=== PATIENT | female | born 1990 | race Caucasian/White ===

== ENCOUNTER 2016-06-09 21:30 | Emergency (ER) | payer SELFPAY ==
[2016-06-09 23:11] LABS: BASOPHILS 0.3 % (0.0-2.0); EOSINOPHILS 0.5 % (0-7); HEMATOCRIT 43.1 % (36.0-48.0); IMMATURE GRANULOCYTES 0.2 % (0-5); LYMPHOCYTES 29.4 % (15-50); MCH 32.4 pg (26.0-34.0); MCHC 34.8 g/dL (31.0-37.0); MCV 93.1 fL (80.0-100.0); MONOCYTES 5.1 % (2-11); NEUTROPHILS 64.5 % (40-80); PLATELET COUNT 232 10x3/uL (130-400); RBC 4.63 10x6/uL (4.00-5.40); WBC 10.7 10x3/uL (4.8-10.8)
[2016-06-09 23:38] LABS: ALBUMIN 3.8 g/dL (3.4-5.0); ALKALINE PHOSPHATASE 109 U/L (46-116); ALT (SGPT) 18 U/L (10-68); BILIRUBIN - TOTAL 0.32 mg/dL (0.2-1.3); CALC OSMOLALITY 272 mosm/kg (275-300); CALCIUM 8.6 mg/dL (8.5-10.1); CARBON DIOXIDE 30.7 mmol/L (21.0-32.0); CHLORIDE - SERUM 102 mmol/L (98-107); CREATININE - SERUM 0.7 mg/dL (0.6-1.3); GLUCOSE 100 mg/dL (74-106); POTASSIUM - SERUM 4.4 mmol/L (3.5-5.1); PROTEIN - SERUM 7.2 g/dL (6.4-8.2); SODIUM 138 mmol/L (136-145); UREA NITROGEN 5 mg/dL (7-18); eGFR NON AFRICAN AMERICAN > 90 mL/min (90-120)
[2016-06-09 23:40] LABS: PHENYTOIN (DILANTIN) 29.2 ug/mL (10.0-20.0)
[2016-06-09 23:41] LABS: APPEARANCE CLEAR (CLEAR); BILIRUBIN NEGATIVE (NEGATIVE); COLOR YELLOW (YELLOW); GLUCOSE NEGATIVE (NEGATIVE); KETONE SMALL mg/dL (NEGATIVE); LEUKOCYTE ESTERASE NEGATIVE (NEGATIVE); NITRITE NEGATIVE (NEGATIVE); PH 6.5 (5.0-6.0); PROTEIN NEGATIVE (NEGATIVE); SPECIFIC GRAVITY 1.005 (1.005-1.020); UROBILINOGEN NORMAL (NORMAL)
[2016-06-09 23:42] LABS: HCG URINE NEGATIVE (NEGATIVE)
== END 2016-06-10 00:45 | disposition home or self-care (01) ==
LOC: D.ER 21:30
PROVIDERS: Family Medicine
DX: R55 Syncope and collapse (principal); F32.9 Major depressive disorder, single episode, unspecified; K21.9 Gastro-esophageal reflux disease without esophagitis

== ENCOUNTER → 2016-07-08 09:14 | Outpatient (CLI) | payer MEDICAID | END | disposition home or self-care (01) | LOC: D.CN 06-25 10:00 → D.MRI 06-25 14:30 → D.CN 06-26 10:00 → D.MRI 09:14 → D.CN 10:00 → D.MRI 11:00 | DX: R55 Syncope and collapse (principal); R56.9 Unspecified convulsions ==

== ENCOUNTER 2016-11-28 21:23 | Emergency (ER) | payer MEDICAID ==
[2016-11-28 22:12] LABS: BASOPHILS 0.2 % (0-2); EOSINOPHILS 0.6 % (0-7); HEMATOCRIT 43.5 % (36.0-48.0); HEMOGLOBIN 15.1 g/dL (12-16); IMMATURE GRANULOCYTES 0.2 % (0-5); LYMPHOCYTES 20.4 % (15-50); MCH 33.6 pg (26.0-34.0); MCHC 34.7 g/dL (31.0-37.0); MCV 96.7 fL (80.0-100.0); MEAN PLATELET VOLUME 10.4 fL (7.4-10.4); MONOCYTES 4.3 % (2-11); NEUTROPHILS 74.3 % (40-80); PLATELET COUNT 254 10x3/uL (130-400); RDW 12.4 % (11.5-14.5); WBC 12.4 10x3/uL (4.8-10.8)
[2016-11-28 22:42] LABS: ALKALINE PHOSPHATASE 103 U/L (46-116); ALT (SGPT) 32 U/L (10-68); CALC OSMOLALITY 281 mosm/kg (275-300); CALCIUM 8.9 mg/dL (8.5-10.1); CARBON DIOXIDE 27.8 mmol/L (21.0-32.0); CHLORIDE - SERUM 103 mmol/L (98-107); CREATININE - SERUM 0.9 mg/dL (0.6-1.3); GLUCOSE 113 mg/dL (74-106); PHENYTOIN (DILANTIN) 1.3 ug/mL (10.0-20.0); POTASSIUM - SERUM 3.9 mmol/L (3.5-5.1); PROTEIN - SERUM 7.5 g/dL (6.4-8.2); SODIUM 141 mmol/L (136-145); UREA NITROGEN 12 mg/dL (7-18); eGFR NON AFRICAN AMERICAN 79 mL/min (90-120)
== END 2016-11-29 00:17 | disposition home or self-care (01) ==
LOC: D.ER 21:23
PROVIDERS: Emergency Medicine
DX: R56.9 Unspecified convulsions (principal); T42.0X6A Underdosing of hydantoin derivatives, initial encounter; T42.3X6A Underdosing of barbiturates, initial encounter; Z91.138 Patient's unintentional underdosing of medication regimen for other reason; Y92.019 Unspecified place in single-family (private) house as the place of occurrence of the external cause; K21.9 Gastro-esophageal reflux disease without esophagitis

== ENCOUNTER → 2017-09-11 11:19 | Outpatient (CLI) | payer MEDICAID ==
[~2017-09-11 11:19] MED LIST: DILANTIN100 MG PO; FOLIC ACID1 MG PO; HYDROCODON-ACE1 EAC7 PO; IBUPROFEN600 MG PO; PHENOBARBITAL97.2 MG PO; ZOLOFT100 MG PO
[2017-10-26 18:05] VITALS: BMI 39.0
== END | disposition home or self-care (01) ==
LOC: D.LDO 11:19 → D.LABREF 11:19
DX: O99.350 Diseases of the nervous system complicating pregnancy, unspecified trimester (principal); Z3A.00 Weeks of gestation of pregnancy not specified

== ENCOUNTER → 2017-09-18 10:33 | Outpatient (CLI) | payer MEDICAID ==
[2017-10-26 18:05] VITALS: BMI 39.0
== END | disposition home or self-care (01) ==
LOC: D.LDO 10:33
DX: O26.893 Other specified pregnancy related conditions, third trimester (principal); Z3A.33 33 weeks gestation of pregnancy

== ENCOUNTER → 2017-10-02 11:25 | Outpatient (CLI) | payer MEDICAID ==
[2017-10-26 18:05] VITALS: BMI 39.0
== END | disposition home or self-care (01) ==
LOC: D.LDO 11:25
DX: O26.893 Other specified pregnancy related conditions, third trimester (principal); Z3A.35 35 weeks gestation of pregnancy

== ENCOUNTER → 2017-10-09 11:26 | Outpatient (CLI) | payer MEDICAID ==
[2017-10-26 18:05] VITALS: BMI 39.0
== END | disposition home or self-care (01) ==
LOC: D.LDO 11:26
DX: O99.353 Diseases of the nervous system complicating pregnancy, third trimester (principal); Z3A.36 36 weeks gestation of pregnancy

== ENCOUNTER → 2017-10-18 14:45 | Outpatient (CLI) | payer MEDICAID ==
[2017-10-26 18:05] VITALS: BMI 39.0
== END | disposition home or self-care (01) ==
LOC: D.LDO 14:45
DX: O99.353 Diseases of the nervous system complicating pregnancy, third trimester (principal); Z3A.37 37 weeks gestation of pregnancy

== ENCOUNTER → 2017-10-23 14:42 | Outpatient (CLI) | payer MEDICAID ==
[2017-10-26 18:05] VITALS: BMI 39.0
== END | disposition home or self-care (01) ==
LOC: D.LDO 14:42
DX: O99.353 Diseases of the nervous system complicating pregnancy, third trimester (principal); Z3A.38 38 weeks gestation of pregnancy; O36.8130 Decreased fetal movements, third trimester, not applicable or unspecified; Z3A.28 28 weeks gestation of pregnancy

== ENCOUNTER 2017-10-26 05:27 | Inpatient (IN) | payer MEDICAID ==
[~2017-10-26] VITALS: Ht 162.6 cm; Wt 103.0 kg
[~2017-10-26 05:27] MED LIST changes: -HYDROCODON-ACE1 EAC7 PO; -IBUPROFEN600 MG PO
[2017-10-26 06:03] LABS: HEMATOCRIT 34.9 % (36.0-48.0); HEMOGLOBIN 12.4 g/dL (12-16); MCH 32.6 pg (26.0-34.0); MCHC 35.5 g/dL (31.0-37.0); MCV 91.8 fL (80.0-100.0); RBC 3.8 10x6/uL (4.00-5.40); RDW 13.1 % (11.5-14.5)
[2017-10-26 07:18] LABS: APPEARANCE CLEAR (CLEAR); BILIRUBIN NEGATIVE (NEGATIVE); COLOR YELLOW (YELLOW); GLUCOSE NEGATIVE (NEGATIVE); KETONE NEGATIVE (NEGATIVE); NITRITE NEGATIVE (NEGATIVE); PROTEIN NEGATIVE (NEGATIVE); UROBILINOGEN NORMAL (NORMAL)
[2017-10-26 18:05] VITALS: Ht 162.6 cm; Wt 103.0 kg
[2017-10-26 20:15] VITALS: BP 102/52
[2017-10-27 06:03] LABS: BASOPHILS 0.1 % (0-2); EOSINOPHILS 0.6 % (0-7); HEMATOCRIT 32.6 % (36.0-48.0); HEMOGLOBIN 11.5 g/dL (12-16); IMMATURE GRANULOCYTES 0.6 % (0-5); LYMPHOCYTES 17.2 % (15-50); MCH 32.7 pg (26.0-34.0); MCHC 35.3 g/dL (31.0-37.0); MCV 92.6 fL (80.0-100.0); MONOCYTES 5.6 % (2-11); NEUTROPHILS 75.9 % (40-80); PLATELET COUNT 195 10x3/uL (130-400); RBC 3.52 10x6/uL (4.00-5.40); RDW 13.3 % (11.5-14.5); WBC 15.7 10x3/uL (4.8-10.8)
[2017-10-27 07:36] LABS: RAPID PLASMA REAGIN Non Reactive (Non Reactive)
[2017-10-27 07:54] VITALS: BP 103/70
[2017-10-27 14:28] VITALS: BP 109/69
[2017-10-27] MEDS ORDERED: HYDROCODON-ACE1 EAC7 PO (15:33)
[2017-10-27] MEDS ORDERED: IBUPROFEN600 MG PO (15:34)
== END 2017-10-27 16:35 | disposition home or self-care (01) | DRG 775 ==
LOC: D.LD 05:27 → D.WS 20:15
PROVIDERS: Obstetrics & Gynecology
PROC: 10E0XZZ Delivery of Products of Conception, External Approach (ICD-10-PCS; principal; 2017-10-26)
PROC: 10907ZC Drainage of Amniotic Fluid, Therapeutic from Products of Conception, Via Natural or Artificial Opening (ICD-10-PCS; 2017-10-26)
DX: O99.354 Diseases of the nervous system complicating childbirth (principal); O66.0 Obstructed labor due to shoulder dystocia; O99.214 Obesity complicating childbirth; B00.9 Herpesviral infection, unspecified; O99.334 Smoking (tobacco) complicating childbirth; Z37.0 Single live birth; Z3A.38 38 weeks gestation of pregnancy

== ENCOUNTER 2019-07-27 11:55 | Outpatient (CLI) | payer MEDICAID ==
[2017-10-26 18:05] VITALS: BMI 39.0
[~2019-07-27 11:55] MED LIST changes: +HYDROCODON-ACE1 EAC7 PO; +IBUPROFEN600 MG PO
== END 2019-07-27 13:00 | disposition home or self-care (01) ==
LOC: D.LDO 11:55
PROVIDERS: ATTEND Obstetrics & Gynecology
DX: O36.8190 Decreased fetal movements, unspecified trimester, not applicable or unspecified (principal); Z3A.00 Weeks of gestation of pregnancy not specified

== ENCOUNTER 2019-08-10 06:33 | Inpatient (IN) | payer MEDICAID ==
[~2019-08-10] VITALS: Ht 162.6 cm; Wt 98.4 kg
[2019-08-10 06:57] LABS: HEMATOCRIT 37.4 % (36.0-48.0); MCH 32.1 pg (26.0-34.0); MCHC 34.8 g/dL (31.0-37.0); MCV 92.3 fL (80.0-100.0); MEAN PLATELET VOLUME 10.3 fL (7.4-10.4); RBC 4.05 10x6/uL (4.00-5.40); RDW 12.5 % (11.5-14.5); WBC 13.9 10x3/uL (4.8-10.8)
[2019-08-10 07:03] LABS: UDS - AMPHET NEGATIVE QUAL (NEGATIVE); UDS - BARB NEGATIVE QUAL (NEGATIVE); UDS - BENZO NEGATIVE QUAL (NEGATIVE); UDS - COCAINE NEGATIVE QUAL (NEGATIVE); UDS - OPIATE NEGATIVE QUAL (NEGATIVE); UDS - PCP NEGATIVE QUAL (NEGATIVE); UDS - THC NEGATIVE QUAL (NEGATIVE)
--- NOTE | 2019-08-10 08:55 | MORECARE ---
CASE MANAGEMENT DISCHARGE SUMMARY PATIENT: JEFFERY ELIZABETH S UNIT: [id number] ADM DATE: 08/10/19 AGE: 29 : 86 SEX: F ROOM/BED: D.[facility] AUTHOR: JACLYN AGUIRRE PHYSICIAN: REFERRING PHYSICIAN: GERI MAXWELL MD DATE OF SERVICE: 08/10/19 Discharge Plan Patient Name: JEFFERY ELIZABETH [facility] [facility] 1990 Planned Disposition: Home Anticipated Discharge Date: Discharge Date: Expected LOS: Initial Reviewer: [email or web address] Initial Review Date: 08/10/2019 Generated: 08/10/19 9:54 am Patient Name: JEFFERY ELIZABETH Page [id number] at 0855 All edits/amendments must be made on the electronic document DICTATION DATE: 08/10/19 0854 GOVERNMENT DOCUMENTS LIBRARIAN: JD 08/10/19 0854 RPT#: [id number] DC DATE: STATUS: ADM IN [facility] [address] [place] [address] END OF REPORT
--- NOTE | 2019-08-10 15:50 | NUR ---
RECEIVED REPORT FROM TODD ELLISON RN
[2019-08-10 16:00] VITALS: BP 98/59
--- NOTE | 2019-08-10 16:00 | NUR ---
SHIFT ASSESSMENT PER FLOW SHEET, VS OBTAINED, SALINE LOCK IN RIGHT FA INTACT WITH NO REDNESS OR EDEMA, FF, ML, U/1, LITE BLEEDING WITH 1 PEA SIZE CLOT NOTED ON TOWEL, PT INST ON AND VERBALIZES UNDERSTANDING OF ALLA CARE AND WALKING TO BR, PT UP TO SIDE OF BED, DENIES DIZZYNESS OR LIGHTHEADEDNESS, PT AMB TO BR, GAIT STEADY WITH ASSISTANCE, PT TO COMMODE, VOIDED 300MLS OF LIGHTLY BLOOD TINGED URINE BY SELF WITH NO DIFFICULTY, PT DID OWN ALLA CARE, ASSISTED PT WITH ALLA PANTIES, PAD, AND CLEAN GOWN, PT AMB, GAIT STEADY, TO ROOM 1257, PT ORIENTED TO ROOM, BED IN LOW POSITION, SIDE RAILS X 2, CALL LIGHT IN REACH, FOB AND THIS RN MOVED ALL BELONGINGS TO ROOM, TOWELS PROVIDED TO PT, AND BEDDING PROVIDED TO FOB, PT DENIES FURTHER NEEDS OR PAIN AT THIS TIME
--- NOTE | 2019-08-10 17:28 | NUR ---
PT SITTING UP IN BED TALKING ON CELL PHONE, DENIES NEEDS OR PAIN, INFANT IN OPEN CRIB CART AND FOB AT BEDSIDE
--- NOTE | 2019-08-10 19:00 | NUR ---
REPORT RECEIVED FROM NAIDA SHAW.
[2019-08-10 19:30] VITALS: BP 99/50
--- NOTE | 2019-08-10 19:30 | NUR ---
PATIENT SITTING UP IN BED. AT BEDSIDE. PATIENT DENIES PAIN AT THIS TIME. RESPIRATIONS AT EASE. LUNG SOUNDS CLEAR IN ALL [place]. HEART REGULAR RATE AND RHYTHM. ABDOMEN SOFT. NON DISTENDED. BOWEL SOUNDS PRESENTS IN ALL QUADRANTS. FUNDUS FIRM, 2 BELOW UMBILICUS. LOCHIA RUBRA, SCANT AMOUNT NOTED ON ALLA PAD. FUNDUS MASSAGED. NO EDEMA NOTED TO EXTREMITIES. SALINE LOCK TO R FA. NO REDNESS OR EDEMA NOTED. PATIENT DENIES ANY NEEDS OR CONCERNS AT THIS TIME. BED IN LOWEST POSITION, SIDE RAILS UP X 2, C/L AND WATER WITHIN REACH.
[2019-08-10 19:33] VITALS: BP 112/58; Ht 162.6 cm; Wt 98.4 kg
--- NOTE | 2019-08-10 21:30 | NUR ---
PATIENT SITTING UP IN BED WITH AT BEDSIDE. DENIES ANY PAIN AT THIS TIME. BED IN LOWEST POSITION, SIDE RAILS UP X 2, C/L AND WATER AT BEDSIDE. DENIES ANY NEEDS OR CONCERNS AT THIS TIME.
--- NOTE | 2019-08-10 23:30 | NUR ---
PATIENT LYING IN BED WITH EYES CLOSED. EASILY AROUSED. DENIES PAIN OR NEEDS AT THIS TIME. BED IN LOWEST POSITION. SIDE RAILS UP X 2, WATER AND CALL LIGHT WITHIN REACH.
--- NOTE | 2019-08-11 01:30 | NUR ---
PATIENT LYING QUIETLY IN BED WITH EYES CLOSED. RESPIRATIONS AT EASE. NO SIGNS OF DISTRESS NOTED. BED IN LOWEST POSITION, SIDE RAILS UP X 2, C/L AND WATER WITHIN REACH.
--- NOTE | 2019-08-11 03:30 | NUR ---
PATIENT LYING IN BED WITH EYES CLOSED. RESPIRATIONS AT EASE. NO SIGNS OF DISTRESS NOTED. BED IN LOWEST POSITION, SIDE RAILS UP X 2, C/L AND WATER WITHIN REACH.
--- NOTE | 2019-08-11 05:30 | NUR ---
PATIENT CALLED THIS RN TO ROOM. STATES INFANT NOT BREATHING. UPON ARRIVAL TO ROOM PINK. INFANT GAGGING ON CLEAR MUSUS LIKE FLUID WITH FORMULA MIXED IN. MOTHER HOLDING INFANT UPRIGHT PATTING HIS BACK. BULB SYRINGED MOUTH AND NOSE. TO NURSERY FOR OBSERVATION. REASSURED MOTHER.
[2019-08-11 06:07] LABS: HEMATOCRIT 34.1 % (36.0-48.0); HEMOGLOBIN 11.8 g/dL (12-16); MCH 32.2 pg (26.0-34.0); MCHC 34.6 g/dL (31.0-37.0); MCV 92.9 fL (80.0-100.0); MEAN PLATELET VOLUME 10.2 fL (7.4-10.4); RBC 3.67 10x6/uL (4.00-5.40); RDW 12.5 % (11.5-14.5)
[2019-08-11 06:09] LABS: RAPID PLASMA REAGIN Non Reactive (Non Reactive)
[2019-08-11 08:44] VITALS: BP 97/54
--- NOTE | 2019-08-11 08:44 | NUR ---
SHIFT ASSESSMENT COMPLETED PER FLOWSHEET. VSS. FUNDUS FIRM, MIDLINE AND U2 WITH SCANT RUBRA LOCHIA, NO CLOTS NOTED. REPORTS THAT SHE IS VOIDING AND PASSING FLATUS WITHOUT DIFFICULTY. PT VERBALIZES PERICARE TO RN. MINIMAL BILATERAL LABIAL EDEMA NOTED. DENIES PAIN. POC DISCUSSED WITH PT AND SIGNIFICANT OTHER. ACTIVITY LIMITATIONS DISCUSSED WITH PT AND SPOUSE, BOTH VERBALIZE UNDERSTANDING AND DENY QUESTIONS. INFANT AT BEDSIDE RESTING QUIETLY IN OPEN CRIB. BED IN LOW POSITION WITH SRUP X2. CALL LIGHT AND PHONE WITHIN REACH.
--- NOTE | 2019-08-11 11:22 | NUR ---
DR. MCGUIRE AT BEDSIDE DISCUSSING INFANT'S POC WITH PT AND FOB. PT DENIES NEEDS. WILL CONTINUE TO MONITOR.
--- NOTE | 2019-08-11 12:51 | NUR ---
RN TO BEDSIDE, SITTING ON EDGE OF BED, BONDING WITH . DENIES PAIN AND NEEDS. BED IN LOW POSITION WITH SRUP X2. CALL LIGHT AND PHONE WITHIN REACH. WILL CONTINUE TO MONITOR. SPOUSE AT BEDSIDE, SUPPORTIVE AND ATTENTIVE TO PT AND NEEDS.
--- NOTE | 2019-08-11 13:46 | NUR ---
ROUNDS MADE. PT RESTING QUIETLY WITH EYES CLOSED. RESP REGULAR AND UNLABORED, NO S/S OF DISTRESS NOTED. BED IN LOW POSITION WITH SRUP X2. CALL LIGHT AND PHONE WITHIN REACH.
--- NOTE | 2019-08-11 16:46 | NUR ---
SITTING IN HIGH FOWLERS POSITION EATING EVENING MEAL. REQUESTS TO SHOWER FOLLOWING FINISHING MEAL. INSTRUCTED TO NOTIFY RN FOR LINEN CHANGE AND V/S CHECK PRIOR TO SHOWERING. STATES THAT SIGNIFICANT OTHER WILL ASSIST TO SHOWER. INFANT RESTING QUIETLY IN OPEN CRIB AT BEDSIDE. WILL CONTINUE TO MONITOR.
[2019-08-11 19:10] VITALS: BP 99/56
--- NOTE | 2019-08-11 19:10 | NUR ---
ASSESSMENT PER FLOW SHEET, VS OBTAINED, FF, ML, U/2, PT REPORTS LIGHT BLEEDING WITH NO CLOTS, PT REPORTS FLATUS, NO BM, AND VOIDING WITH NO DIFFICULTY, PT REPORTS THAT SHE IS GOING TO TAKE A SHOWER, AND I INFORMED PT THAT I WILL COME BACK TO CHANGE HER BEDDING, PT VERBALIZES UNDERSTANDING, DENIES NEEDS OR PAIN AT THIS TIME, ISRAEL HARRIS, RN IN ROOM DOING ASSESSMENT ON INFANT AT THIS TIME, FOB AT BEDSIDE
--- NOTE | 2019-08-11 19:45 | NUR ---
PT OUT OF SHOWER, COMPLETE BEDDING CHANGE DONE, TRASH REMOVED, PT DENIES NEEDS OR PAIN AT THIS TIME, IN OPEN CRIB CART AND FOB SITTING ON COUCH WITH PT
--- NOTE | 2019-08-11 21:13 | NUR ---
PT HOLDING INFANT, DENIES NEEDS OR PAIN AT THIS TIME, FOB ASLEEP ON COUCH
--- NOTE | 2019-08-11 22:23 | NUR ---
PT HOLDING INFANT, REQUESTED AND PROVIDED FORMULA, NIPPLES, AND BABY WIPES, PT DENIES FURTHER NEEDS, FOB ASLEEP ON COUCH
--- NOTE | 2019-08-12 00:02 | NUR ---
PT HOLDING , INFORMED PT THAT I NEED TO TAKE TO NSY, PT VERBALIZES UNDERSTANDING, INFANT TO NSY VIA OPEN CRIB CART PER THIS RN
--- NOTE | 2019-08-12 00:32 | NUR ---
INFANT TO ROOM VIA OPEN CRIB CART, BANDS CHECKED, TO PT'S ARMS, PT DENIES NEEDS OR PAIN AT THIS TIME, FOB ASLEEP ON COUCH
--- NOTE | 2019-08-12 02:45 | NUR ---
PT RESTING IN BED HOLDING , DENIES NEEDS OR PAIN AT THIS TIME, FOB ASLEEP ON COUCH
--- NOTE | 2019-08-12 04:39 | NUR ---
PT AWAKE, BOTTLE FEEDING , PT REPORTS IS FEEDING WELL, PT DENIES NEEDS OR PAIN AT THIS TIME, FOB ASLEEP ON COUCH
--- NOTE | 2019-08-12 06:24 | NUR ---
UPON ENTERING ROOM, PT RESTING HOLDING INFANT, PT INST NOT TO BE SLEEPING WITH INFANT IN BED WITH HER, PT STATES "I'M NOT, I'M AWAKE", PT DENIES NEEDS OR PAIN, FOB ASLEEP ON COUCH
--- NOTE | 2019-08-12 07:14 | NUR ---
PT LAYING ON R SIDE, RESTING WITH EYES CLOSED. RESP REGULAR AND UNLABORED, NO S/S OF DISTRESS NOTED. PT NOT DISTURBED TO ALLOW FOR REST. SIGNIFICANT OTHER RESTING ON COUCH IN ROOM. BED IN LOW POSITION WITH SRUP X2. CALL LIGHT AND PHONE WITHIN REACH. WILL CONTINUE TO MONITOR.
--- NOTE | 2019-08-12 07:15 | NUR ---
SHIFT REPORT TO DAY SHIFT
--- NOTE | 2019-08-12 08:55 | NUR ---
SHIFT ASSESSMENT COMPLETED PER FLOWSHEET. VSS. FUNDUS FIRM, MIDLINE AND U2 WITH SCANT RUBRA LOCHIA, NO CLOTS NOTED. C/O ABD CRAMPING 2/10, MOTRIN GIVEN PER ORDER AND PT REQUEST. NO PIV ACCESS NOTED. 1+ BLE EDEMA. REPORTS THAT SHE IS VOIDING AND PASSING FLATUS WITHOUT DIFFICULTY. VERBALIZES PERICARE TO RN. DENIES QUESTIONS. EDUCATED ON S/S OF BLEEDING TO REPORT TO RN AND TO MD FOLLOWING D/C HOME. EDUCATED ON S/S OF INFECTIONS, VERBALIZES UNDERSTANDING. POC DISCUSSED WITH PT AND SIGNIFICANT OTHER. DENIES NEEDS AND QUESTIONS. POC DISCUSSED WITH BOTH, VERBALIZES UNDERSTANDING AND AGREEMENT. BED IN LOW POSITION WITH SRUP X2. CALL LIGHT AND PHONE WITHIN REACH. WILL CONTINUE TO MONITOR.
--- NOTE | 2019-08-12 09:36 | NUR ---
PAIN REASSESSMENT COMPLETED. DENIES PAIN. INFANT IN FOB'S ARMS. BED IN LOW POSITION WITH SRUP X2. CALL LIGHT AND PHONE WITHIN REACH. WILL CONTINUE TO MONITOR.
--- NOTE | 2019-08-12 10:45 | NUR ---
BONDING WITH INFANT IN ARMS. DENIES PAIN AND NEEDS. ICE WATER PROVIDED. SIGNIFICANT OTHER AT BEDSIDE, SUPPORTIVE AND ATTENTIVE TO PT AND NEEDS. PT QUESTIONS RN REGARDING POSSIBLE D/C HOME TODAY, INFORMED PT THAT RN WOULD SPEAK TO DR. MAXWELL REGARDING POSSIBLE D/C, VERBALIZES UNDERSTANDING.
--- NOTE | 2019-08-12 11:11 | NUR ---
DR. MAXWELL ON UNIT. V/O REC'D TO D/C PT HOME.
--- NOTE | 2019-08-12 11:59 | MORECARE ---
CASE MANAGEMENT DISCHARGE SUMMARY PATIENT: JEFFERY ELIZABETH S UNIT: [id number] ADM DATE: 08/10/19 AGE: 29 : 86 SEX: F ROOM/BED: D.1257 AUTHOR: JACLYN AGUIRRE PHYSICIAN: REFERRING PHYSICIAN: GERI MAXWELL MD DATE OF SERVICE: 08/12/19 Discharge Plan Patient Name: JEFFERY ELIZABETH [facility] [facility] 1990 Planned Disposition: Home Anticipated Discharge Date: 08/12/19 Discharge Date: Expected LOS: 2 Initial Reviewer: [email or web address] Initial Review Date: 08/10/2019 Generated: 08/12/19 12:58 pm Last DP export: 08/10/19 7:55 a Patient Name: JEFFERY ELIZABETH Page [id number] at 1159 All edits/amendments must be made on the electronic document DICTATION DATE: 08/12/19 1159 INTERACTIVE ACCOUNT MANAGER: JD 08/12/19 1159 RPT#: [id number] DC DATE: STATUS: ADM IN [facility] [address] [place] [address] END OF REPORT
--- NOTE | 2019-08-12 12:27 | NUR ---
DISCHARGE TEACHING PROVIDED TO PT PER [facility] PP INSTRUCTION HANDOUT. PT AND SIGNIFICANT OTHER DENY QUESTIONS AND VERBALIZE UNDERSTANDING OF INSTRUCTIONS. PT PROVIDED WITH COPY OF D/C INSTRUCTIONS AND VERBALIZES IMPORTANCE OF CALLING THURSDAY TO SCHEDULE PP F/U APPT WITH DR. MAXWELL NEEDED. PT PROVIDED WITH HANDWRITTEN PRESCRIPTION, [employer] HANDOUT, [employer] HANDOUT, AND [facility] PP INSTRUCTION HANDOUT. MED RECORDS CONTACTED TO COME TO ROOM FOR ACKNOWLEDGEMENT OF PATERNITY. DENIES NEEDS AND PAIN. WILL CONTINUE TO MONITOR.
--- NOTE | 2019-08-12 13:30 | NUR ---
PT AMBULATORY TO DESK IN REGARDING QUESTIONS TO WHEN WILL BE D/C'ING. SPOKE WITH DR. PELLETIER WHO REPORTS THAT SHE WILL BE REVIEWING AND CHART AND WILL COME MEET WITH PT AND FOB WHEN DONE. PT AND SIGNIFICANT OTHER INFORMED AND VERBALIZE UNDERSTANDING.
--- NOTE | 2019-08-12 15:34 | NUR ---
ZARIA SANZ LPN IN ROOM REVIEWING D/C INSTRUCTIONS.
--- NOTE | 2019-08-12 15:50 | NUR ---
REFUSES W/C OFF UNIT. AMBULATORY WITH THIS RN AND IN CAR SEAT TO AWAITING VECHILE. STEADY GAIT NOTED, IN STABLE CONDITION.
--- NOTE | 2019-08-15 08:55 | MORECARE ---
CASE MANAGEMENT DISCHARGE SUMMARY PATIENT: JEFFERY ELIZABETH S UNIT: [id number] ADM DATE: 08/10/19 AGE: 29 : 86 SEX: F ROOM/BED: D.1257 AUTHOR: JACLYN AGUIRRE PHYSICIAN: REFERRING PHYSICIAN: GERI MAXWELL MD DATE OF SERVICE: 08/15/19 Discharge Plan Patient Name: JEFFERY ELIZABETH [facility] [facility] 1990 Planned Disposition: Home Anticipated Discharge Date: 08/12/19 Discharge Date: 08/12/2019 Expected LOS: 2 Initial Reviewer: [email or web address] Initial Review Date: 08/10/2019 Generated: 08/15/19 9:55 am Last DP export: 08/12/19 10:59 a Patient Name: JEFFERY ELIZABETH Page [id number] at 0855 All edits/amendments must be made on the electronic document DICTATION DATE: 08/15/1955 ENROUTE CONTROLLER: JD 08/15/1957 RPT#: [id number] DC DATE:08/12/19 STATUS: [facility] [address] [place] [address] END OF REPORT
== END 2019-08-12 15:50 | disposition home or self-care (01) | DRG 807 ==
LOC: D.LD 06:33
PROVIDERS: ADMIT Obstetrics & Gynecology; ATTEND Obstetrics & Gynecology
PROC: 10E0XZZ Delivery of Products of Conception, External Approach (ICD-10-PCS; principal; 2019-08-10)
PROC: 3E033VJ Introduction of Other Hormone into Peripheral Vein, Percutaneous Approach (ICD-10-PCS; 2019-08-10)
DX: O99.824 Streptococcus B carrier state complicating childbirth (principal); Z37.0 Single live birth; Z3A.38 38 weeks gestation of pregnancy